=== PATIENT | female | born 1940 | race Native Hawaiian/Other Pacific Islander ===

== ENCOUNTER 2021-11-03 10:19 | Emergency (ER) | payer MEDICARE ==
[2021-11-03 10:47] LABS: Absolute Neutrophil Ct (ANC) 6.63 x10^3/uL (1.4-6.9); Basophil (Absolute #) 0.05 x10^3/uL (0-0.4); Eosinophil % 1.5 % (0.00-5.0); Eosinophil (Absolute #) 0.16 x10^3/uL (0-0.5); Hematocrit 40.3 % (35-47); Hemoglobin 12.7 g/dL (12.0-16.0); Lymphocyte (Absolute #) 2.96 x10^3/uL (1.0-4.6); Lymphocytes % 28.1 % (24.0-44.0); Mean Corpuscular Hemoglobin 27.7 pg (26-32); Mean Corpuscular Hgb Concent. 31.5 g/dL (32-36); Mean Platelet Volume 9.1 fL (7.5-11.0); Monocyte (Absolute #) 0.72 x10^3/uL (0.0-1.3); Monocytes % 6.8 % (0.0-12.0); Neutrophil % 62.8 % (36.0-66.0); Platelet Count 256 x10^3/uL (150-450); Red Blood Count 4.58 x10^6/uL (4.1-5.4); Red Cell Distribution Width 13.3 % (11.5-14.0); White Blood Count 10.6 x10^3/uL (4.0-10.5)
--- NOTE | 2021-11-03 10:47 | ERPHSYRPT ---
- History of Present Illness Source: patient, EMS Exam Limitations: no limitations Patient Subjective Stated Complaint: Syncope Triage Nursing Assessment: Patient brought back to ED per EMS and transferred to bed with assist of 2. Patient A+O x3. Patient's skin pink, warm and dry .Patient states she was done shopping at [facility] when she was going to go to bathroom to have a BM when she came very dizzy and "passed out". Patient complains of occasional dizziness, N/V and diarrhea. Patient complains of pain to back of head 06/25. Hematoma noted to back of head. Physician History: 80 yo wf brought to ER by EMS from [facility] after having syncope episode. Pt started to have diarrhea in [facility] and soiled herself before syncopal episode where she fell and hit head. She also had mild nausea and vomiting x1. Pt denies chest pain/fever/cough/melena/hematochezia/focal weakness/hematemesis/chest pain. She states that she was diaphoretic. Abdominal pain denied. She has a mild occipital CAMARGO and superior cervical pain. Occurred: just prior to arrival Reason for Fall: lost balance, fell from standing pos Injuries/Pain Location: no injury, head, neck Loss of Consciousness: brief (seconds) Quality: aching Severity of Pain-Max: moderate Severity of Pain-Current: moderate Modifying Factors: Improves With: movement Associated Symptoms (Fall): headache, lightheadedness, nausea, neck pain, vomiting, No abdominal pain, No back pain, No confusion, No chest pain, No extremity injury, No muscle spasms, No ringing in ears, No seizures, No shortness of breath, No slurred speech, No trouble walking, No vision changes Allergies/Adverse Reactions: No Known Drug Allergies Allergy (Unverified 11/03/21 10:27) Hx Influenza Vaccination/Date Given: Yes Hx Pneumococcal Vaccination/Date Given: No Immunizations Up to Date: Yes Travel Risk - International Travel Have you traveled outside of the country in past 3 weeks: No - Coronavirus Screening Are you exhibiting any of the following symptoms?: No Close contact with a COVID-19 positive Pt in past 14-21 Days: No - Vaccine Status Have you recieved a Covid-19 vaccination: Yes Route Salesman: Unknown - Vaccination Dates Date of 2cond Vaccination (if applicable): na Dates if Unknown: na - Review of Systems Constitutional: No Symptoms Eyes: No Symptoms Ears, Nose, & Throat: No Symptoms Respiratory: No Symptoms Cardiac: No Symptoms Abdominal/Gastrointestinal: No Symptoms, Nausea, Vomiting, Diarrhea Genitourinary Symptoms: No Symptoms Musculoskeletal: No Symptoms, Neck Pain Skin: No Symptoms Neurological: No Symptoms Psychological: No Symptoms Endocrine: No Symptoms Hematologic/Lymphatic: No Symptoms Immunological/Allergic: No Symptoms - Past Medical History Pertinent Past Medical History: Yes Neurological History: No Pertinent History ENT History: No Pertinent History Cardiac History: High Cholesterol, Hypertension Respiratory History: No Pertinent History Endocrine Medical History: Diabetes Type II Musculoskeletal History: No Pertinent History GI Medical History: GERD History: No Pertinent History Psycho-Social History: No Pertinent History Female Reproductive Disorders: No Pertinent History - Past Surgical History Past Surgical History: Yes Cardiac: No Pertinent History Respiratory: No Pertinent History Gastrointestinal: No Pertinent History Genitourinary: No Pertinent History Musculoskeletal: Orthopedic Surgery Female Surgical History: No Pertinent History Other Surgical History: left hip replacement August 2020 - Social History Smoking Status: Never smoker Exposure to second hand smoke: No Drug Use: none Patient Lives Alone: No Significant Family History: no pertinent family hx - Nursing Vital Signs Nursing Vital Signs: Initial Vital Signs Temperature 97.7 F 11/03/21 10:28 Pulse Rate 92 H 11/03/21 10:28 Respiratory Rate 18 11/03/21 10:28 Blood Pressure 152/102 11/03/21 10:28 O2 Sat by Pulse Oximetry 97 11/03/21 10:28 Pain Scale Pain Intensity 0 Hypertensive - Zoran Coma Score Best Eye Response (Zoran): (4) open spontaneously Best Verbal Response ([place]): (5) oriented Best Motor Response (Zoran): (6) obeys commands Zoran Total: 15 - Physical Exam General Appearance: no apparent distress, anxiety Head Injury: tenderness (Occiput TTP) Eye Exam: PERRL/EOMI, eyes nml inspection ENT Exam: airway nml, No evidence of ENT injury, No clear fluid (ears), No clear fluid (nose) Neck Exam: supple, trachea midline, tenderness (C-spine mildly TTP superiorly) Respiratory/Chest Exam: normal breath sounds, No chest tenderness, No respiratory distress Cardiovascular Exam: normal heart sounds, regular rate/rhythm, normal peripheral pulses, No murmur Gastrointestinal Exam: soft, normal bowel sounds, No tenderness Back Exam: normal inspection, normal range of motion, No CVA tenderness, No vertebral tenderness Extremity Exam: normal inspection, normal range of motion, capillary refill <3 sec, pelvis stable Peripheral Pulses: carotid (R): 2+, carotid (L): 2+ Neurologic Exam: alert, oriented x 3, cooperative, seismograph chief II-XII nml as tested, normal mood/affect, sensation nml Skin Exam: normal color, warm, dry, No rash SpO2 Interpretation: normal SpO2: 97 O2 Delivery: Room Air - Course Nursing assessment & vital signs reviewed: Yes EKG Interpreted by Me: RATE (NSR/R98/Prolonged QTc/Tall R wave V2/Nonspecific ST-Twave changes) - CT Exams Head CT Interpretation: Discussed w/radiologist (Small occipital scalp hematoma, otherwise neg) Cervical Spine CT Interpretation: Discussed w/radiologist (No fx) Chest CT Interpretation: Discussed w/radiologist (CTA of chest/No PE/Scattered indeterminent micronodules/CHANG/gallstone) Ordered Tests: Active Orders 24 hr Category Date Time Status EKG-ER Only STAT Care 11/03/21 10:27 Completed CERVICAL SPINE WO CONTRAST [CT] Stat Exams 11/03/21 10:27 Completed CHEST WITH CONTRAST [CT] Stat Exams 11/03/21 12:42 Completed HEAD WITHOUT CONTRAST [CT] Stat Exams 11/03/21 11:27 Completed CBC W DIFF Stat Lab 11/03/21 10:40 Completed CMP Stat Lab 11/03/21 10:40 Completed CULTURE,URINE Stat Lab 11/03/21 11:04 Received D-DIMER QUANTITATIVE Stat Lab 11/03/21 12:04 Completed PROTIME WITH INR Stat Lab 11/03/21 10:40 Completed PTT Stat Lab 11/03/21 10:40 Completed TROPONIN Q4H Lab 11/03/21 10:40 Completed TROPONIN Q4H Lab 11/03/21 13:47 Completed UA W/RFX CULTURE Stat Lab 11/03/21 11:04 Completed Medication Summary Discontinued Medications Generic Name Dose Route Start Last Admin Trade Name Freq PRN Reason Stop Dose Admin Sodium Chloride 1,000 mls @ 999 mls/hr 11/03/21 12:02 11/03/21 13:34 Sodium Chloride 0.9% 1000 Ml IV 11/03/21 13:02 Infused .Q1H1M STA Infusion Sodium Chloride Confirm 11/03/21 12:04 Sodium Chloride 0.9% 1000 Ml Administered 11/03/21 12:05 Dose 1,000 mls @ .ROUTE .[facility] Lab/Rad Data: Laboratory Result Diagrams 11/03/21 10:40 11/03/21 10:40 Laboratory Results 11/03/21 11/03/21 11/03/21 Range/Units 13:47 12:04 11:11 WBC (4.0-10.5) x10^3/uL RBC (4.1-5.4) x10^6/uL Hgb (12.0-16.0) g/dL Hct (35-47) % MCV (78-100) fL MCH (26-32) pg MCHC (32-36) g/dL RDW (11.5-14.0) % Plt Count (150-450) x10^3/uL MPV (7.5-11.0) fL Gran % (36.0-66.0) % Immature Gran % (Auto) (0.00-0.4) % Nucleat RBC Rel Count (0.00-0.1) % Eos # (Auto) (0-0.5) x10^3/uL Immature Gran # (Auto) (0.00-0.03) x10^3u/L Absolute Lymphs (auto) (1.0-4.6) x10^3/uL Absolute Monos (auto) (0.0-1.3) x10^3/uL Absolute Nucleated RBC (0.00-0.01) x10^3u/L Lymphocytes % (24.0-44.0) % Monocytes % (0.0-12.0) % Eosinophils % (0.00-5.0) % Basophils % (0.0-0.4) % Absolute Granulocytes (1.4-6.9) x10^3/uL Basophils # (0-0.4) x10^3/uL PT (9.4-12.5) SECONDS INR (0.8-3.0) APTT (25.1-36.5) SECONDS D-Dimer 1.72 H* (0.0-0.50) mg/L Sodium (137-145) mmol/L Potassium (3.5-5.1) mmol/L Chloride (98-107) mmol/L Carbon Dioxide (22-30) mmol/L Anion Gap (5-15) MEQ/L BUN (7-17) mg/dL Creatinine (0.52-1.04) mg/dL Estimated GFR ML/MIN Glucose (74-106) mg/dL Calcium (8.4-10.2) mg/dL Total Bilirubin (0.2-1.3) mg/dL AST (14-36) U/L ALT (0-35) U/L Alkaline Phosphatase (38-126) U/L Troponin I < 0.012 (0.000-0.034) ng/mL Serum Total Protein (6.3-8.2) g/dL Albumin (3.5-5.0) g/dL Urinalys Dipstick Clnc Urine Color (YELLOW) Urine Appearance (CLEAR) Urine pH (5-6) Ur Specific [place] (1.005-1.025) POC Urine Protein Conf (Negative) Urine Ketones (NEGATIVE) Urine Nitrite (NEGATIVE) Urine Bilirubin (NEGATIVE) Urine Urobilinogen (0-1) mg/dL Urine Leukocytes (NEGATIVE) Urine WBC (Auto) (0-5) /HPF Urine RBC (Auto) (0-2) /HPF Urine Bacteria (Auto) (NEGATIVE) /HPF Urine RBC (0-5) Abel/ul Urine Mucus (Auto) (NEGATIVE) /HPF Ur Culture Indicated? Urine Glucose (NEGATIVE) mg/dL Influenza Type A Ag NEGATIVE (NEGATIVE) Influenza Type B Ag NEGATIVE (NEGATIVE) RSV (PCR) NEGATIVE (Negative) SARS-CoV-2 (PCR) NEGATIVE (NEGATIVE) 11/03/21 11/03/21 11/03/21 Range/Units 11:04 10:40 10:40 WBC (4.0-10.5) x10^3/uL RBC (4.1-5.4) x10^6/uL Hgb (12.0-16.0) g/dL Hct (35-47) % MCV (78-100) fL MCH (26-32) pg MCHC (32-36) g/dL RDW (11.5-14.0) % Plt Count (150-450) x10^3/uL MPV (7.5-11.0) fL Gran % (36.0-66.0) % Immature Gran % (Auto) (0.00-0.4) % Nucleat RBC Rel Count (0.00-0.1) % Eos # (Auto) (0-0.5) x10^3/uL Immature Gran # (Auto) (0.00-0.03) x10^3u/L Absolute Lymphs (auto) (1.0-4.6) x10^3/uL Absolute Monos (auto) (0.0-1.3) x10^3/uL Absolute Nucleated RBC (0.00-0.01) x10^3u/L Lymphocytes % (24.0-44.0) % Monocytes % (0.0-12.0) % Eosinophils % (0.00-5.0) % Basophils % (0.0-0.4) % Absolute Granulocytes (1.4-6.9) x10^3/uL Basophils # (0-0.4) x10^3/uL PT 10.8 (9.4-12.5) SECONDS INR 1.02 (0.8-3.0) APTT 25.9 (25.1-36.5) SECONDS D-Dimer (0.0-0.50) mg/L Sodium (137-145) mmol/L Potassium (3.5-5.1) mmol/L Chloride (98-107) mmol/L Carbon Dioxide (22-30) mmol/L Anion Gap (5-15) MEQ/L BUN (7-17) mg/dL Creatinine (0.52-1.04) mg/dL Estimated GFR ML/MIN Glucose (74-106) mg/dL Calcium (8.4-10.2) mg/dL Total Bilirubin (0.2-1.3) mg/dL AST (14-36) U/L ALT (0-35) U/L Alkaline Phosphatase (38-126) U/L Troponin I < 0.012 (0.000-0.034) ng/mL Serum Total Protein (6.3-8.2) g/dL Albumin (3.5-5.0) g/dL Urinalys Dipstick Clnc MAIN LAB Urine Color YELLOW (YELLOW) Urine Appearance CLEAR (CLEAR) Urine pH 5.5 (5-6) Ur Specific [place] 1.025 (1.005-1.025) POC Urine Protein Conf 30 (Negative) Urine Ketones SMALL-15 (NEGATIVE) Urine Nitrite NEGATIVE (NEGATIVE) Urine Bilirubin SMALL (NEGATIVE) Urine Urobilinogen 0.2 (0-1) mg/dL Urine Leukocytes NEGATIVE (NEGATIVE) Urine WBC (Auto) 0-2 (0-5) /HPF Urine RBC (Auto) NONE (0-2) /HPF Urine Bacteria (Auto) RARE (NEGATIVE) /HPF Urine RBC NEGATIVE (0-5) Abel/ul Urine Mucus (Auto) SLIGHT (NEGATIVE) /HPF Ur Culture Indicated? YES Urine Glucose NEGATIVE (NEGATIVE) mg/dL Influenza Type A Ag (NEGATIVE) Influenza Type B Ag (NEGATIVE) RSV (PCR) (Negative) SARS-CoV-2 (PCR) (NEGATIVE) 11/03/21 11/03/21 Range/Units 10:40 10:40 WBC 10.6 H (4.0-10.5) x10^3/uL RBC 4.58 (4.1-5.4) x10^6/uL Hgb 12.7 (12.0-16.0) g/dL Hct 40.3 (35-47) % MCV 88.0 (78-100) fL MCH 27.7 (26-32) pg MCHC 31.5 L (32-36) g/dL RDW 13.3 (11.5-14.0) % Plt Count 256 (150-450) x10^3/uL MPV 9.1 (7.5-11.0) fL Gran % 62.8 (36.0-66.0) % Immature Gran % (Auto) 0.3 (0.00-0.4) % Nucleat RBC Rel Count 0.0 (0.00-0.1) % Eos # (Auto) 0.16 (0-0.5) x10^3/uL Immature Gran # (Auto) 0.03 (0.00-0.03) x10^3u/L Absolute Lymphs (auto) 2.96 (1.0-4.6) x10^3/uL Absolute Monos (auto) 0.72 (0.0-1.3) x10^3/uL Absolute Nucleated RBC 0.00 (0.00-0.01) x10^3u/L Lymphocytes % 28.1 (24.0-44.0) % Monocytes % 6.8 (0.0-12.0) % Eosinophils % 1.5 (0.00-5.0) % Basophils % 0.5 (0.0-0.4) % Absolute Granulocytes 6.63 (1.4-6.9) x10^3/uL Basophils # 0.05 (0-0.4) x10^3/uL PT (9.4-12.5) SECONDS INR (0.8-3.0) APTT (25.1-36.5) SECONDS D-Dimer (0.0-0.50) mg/L Sodium 138 (137-145) mmol/L Potassium 3.8 (3.5-5.1) mmol/L Chloride 100 (98-107) mmol/L Carbon Dioxide 25 (22-30) mmol/L Anion Gap 17.9 H (5-15) MEQ/L BUN 15 (7-17) mg/dL Creatinine 0.94 (0.52-1.04) mg/dL Estimated GFR > 60.0 ML/MIN Glucose 181 H (74-106) mg/dL Calcium 9.3 (8.4-10.2) mg/dL Total Bilirubin 0.40 (0.2-1.3) mg/dL AST 41 H (14-36) U/L ALT 35 (0-35) U/L Alkaline Phosphatase 87 (38-126) U/L Troponin I (0.000-0.034) ng/mL Serum Total Protein 7.4 (6.3-8.2) g/dL Albumin 4.3 (3.5-5.0) g/dL Urinalys Dipstick Clnc Urine Color (YELLOW) Urine Appearance (CLEAR) Urine pH (5-6) Ur Specific [place] (1.005-1.025) POC Urine Protein Conf (Negative) Urine Ketones (NEGATIVE) Urine Nitrite (NEGATIVE) Urine Bilirubin (NEGATIVE) Urine Urobilinogen (0-1) mg/dL Urine Leukocytes (NEGATIVE) Urine WBC (Auto) (0-5) /HPF Urine RBC (Auto) (0-2) /HPF Urine Bacteria (Auto) (NEGATIVE) /HPF Urine RBC (0-5) Abel/ul Urine Mucus (Auto) (NEGATIVE) /HPF Ur Culture Indicated? Urine Glucose (NEGATIVE) mg/dL Influenza Type A Ag (NEGATIVE) Influenza Type B Ag (NEGATIVE) RSV (PCR) (Negative) SARS-CoV-2 (PCR) (NEGATIVE) - Progress Progress: improved Progress Note: 11/03/21 15:06 Pt wo focal weakness/ectopy/chest pain during entire stay. Vital Signs stable 11/03/21 21:14 Pt able to ambulate wo difficulty before discharge Counseled pt/family regarding: lab results, diagnosis, need for follow-up, rad results - Departure Departure Disposition: Home Clinical Impression: Diarrhea, Minor head injury Condition: Stable Critical Care Time: No Referrals: DOCTOR,NO FAMILY [Primary Care Provider] - Follow up/PCP as directed Instructions: Diarrhea and Travelers' Diarrhea, Adult (DC), Syncope (Fainting) (DC), Preventing Falls in Older Adults, Minor Head Injury (DC) Additional Instructions: Fluids Motrin/Tylenol for pain Ice to contused areas for 12-24 hours Follow up with your family MD on Saturday Return to ER for worsening headache/Focal weakness/Trouble walking
[2021-11-03 11:00] LABS: ALBUMIN 4.3 g/dL (3.5-5.0); ALKALINE PHOSPHATASE 87 U/L (38-126); ANION GAP 17.9 MEQ/L (5-15); BLOOD UREA NITROGEN 15 mg/dL (7-17); CHLORIDE 100 mmol/L (98-107); Calcium 9.3 mg/dL (8.4-10.2); Carbon Dioxide 25 mmol/L (22-30); Creatinine 1 0.94 mg/dL (0.52-1.04); EST GLOMERULAR FILTRATION RATE > 60.0 ML/MIN; Glucose 181 mg/dL (74-106); Potassium 3.8 mmol/L (3.5-5.1); SGOT/AST 41 U/L (14-36); SGPT/ALT 35 U/L (0-35); SODIUM 138 mmol/L (137-145); Total Protein 7.4 g/dL (6.3-8.2)
[2021-11-03 11:01] LABS: INR 1.02 (0.8-3.0); PROTIME 10.8 SECONDS (9.4-12.5); PTT 25.9 SECONDS (25.1-36.5)
[2021-11-03 11:36] LABS: Bacteria RARE /HPF (NEGATIVE); Mucus SLIGHT /HPF (NEGATIVE); WBC 0-2 /HPF (0-5)
--- NOTE | 2021-11-03 11:36 | XRAY ---
Indication: Right posterior head injury following fall. Multiple contiguous axial images obtained through the head without contrast. Comparison: None Age-appropriate global atrophy and mild periventricular degenerative micro-ischemia bilaterally. No acute intracranial hemorrhage, abnormal extra-axial fluid collection, or mass effect. Fourth ventricle is midline without hydrocephalus. Small right occipital scalp hematoma. Bony calvarium intact. Visualized paranasal sinuses and mastoid air cells are clear. Impression: Small right occipital scalp hematoma. Otherwise nonacute senile brain.
[2021-11-03 11:38] LABS: Appearance CLEAR (CLEAR); Bilirubin SMALL (NEGATIVE); Glucose NEGATIVE (NEGATIVE)
--- NOTE | 2021-11-03 11:38 | XRAY ---
Indication: Right posterior head injury following fall. Multiple contiguous axial images obtained through the cervical spine. Sagittal and coronal reformatted images obtained. Comparison: None Age-related osteopenia. Axial images negative for acute fracture, suspicious bony lesions, or spinal canal stenosis. Mild/moderate C3-C7 degenerative endplate spurring and mild/moderate multilevel bilateral degenerative facet hypertrophy. Also atlantoaxial degenerative arthropathy. Sagittal and coronal reformatted images demonstrates normal cervical lordosis with C3-C7 degenerative disc space loss and 3 mm C7 degenerative anterolisthesis. No acute compression fracture or jumped facet. Normal-appearing craniocervical junction. Visualized noncontrasted soft tissues demonstrates moderate bilateral carotid calcifications. Lung apices are clear. Impression: 1. Negative acute fracture. 2. Osteopenia, multilevel degenerative spondylosis including grade 1 C7 listhesis, and bilateral carotid calcifications.
[2021-11-03 11:39] LABS: Ketones SMALL-15 (NEGATIVE); Nitrite NEGATIVE (NEGATIVE); Ph 5.5 (5-6); Protein,Urine Dip 30 (Negative); RBC NEGATIVE Ery/ul (0-5); Specific Gravity 1.025 (1.005-1.025); Urine Cultured Indicated? YES; Urobilinogen 0.2 mg/dL (0-1)
[2021-11-03 11:48] LABS: Dipstick done @ ? MAIN LAB
[2021-11-03] MEDS ORDERED: Sodium Chloride 0.9% 1000 ML 1,000 ML IV STA (12:02)
[2021-11-03] MEDS ORDERED: Sodium Chloride 0.9% 1000 ML 1,000 ML ONE (12:04)
[2021-11-03 12:32] LABS: INFLUENZA A NEGATIVE (NEGATIVE); INFLUENZA B NEGATIVE (NEGATIVE); RESPIRATORY SYNCTIAL VIRUS NEGATIVE (Negative); SARS-CoV-2 Xpert Express NEGATIVE (NEGATIVE)
--- NOTE | 2021-11-03 13:21 | XRAY ---
Indication: Syncope. Elevated d-dimer. Multiple contiguous axial images obtained through the chest using 100 cc Isovue 370 contrast and PE protocol. Comparison: None Good opacification of the pulmonary arteries to include the lobar and segmental branches. No pulmonary embolus. Heart is not enlarged. Aorta is moderately arteriosclerotic without aneurysm/dissection. Tiny bilateral hilar and distal paraesophageal calcified nodes. No pathologic mediastinal/hilar lymphadenopathy. Lungs hyperinflated with minimal bilateral dependent atelectasis and tiny right upper/lower lobe calcified granulomas. There are at least 5 right and 3 left lung peripheral noncalcified indeterminant micronodules, largest 7 mm in right middle lobe. No infiltrate, effusion, or pneumothorax. Bony thorax intact with osteopenia and mild degenerative changes throughout the visualized spine. Limited upper abdomen demonstrates food/fluid distended stomach, fatty liver, 1 cm gallstone, and 1.5 cm right upper renal cyst. Impression: 1. Negative pulmonary embolus. No acute cardiopulmonary abnormalities. 2. Multiple bilateral indeterminate noncalcified micronodules. Findings too small for PET/CT. Consider follow-up or Fleischner guidelines. 3. Chronic findings including arteriosclerotic disease, chronic bony findings, fatty liver, small gallstone, small right renal cyst, and old granulomatous disease.
[2021-11-03 15:03] VITALS: BP 165/76; PULSE 80
[2021-11-03 15:11] VITALS: O2SAT 97
== END 2021-11-03 15:19 | disposition home or self-care (01) ==
LOC: ED 10:19
DX: R19.7 Diarrhea, unspecified (principal); S09.90XA Unspecified injury of head, initial encounter; W18.30XA Fall on same level, unspecified, initial encounter; Y92.512 Supermarket, store or market as the place of occurrence of the external cause; R55 Syncope and collapse; R11.2 Nausea with vomiting, unspecified; R51.9 Headache, unspecified; M54.2 Cervicalgia; E78.5 Hyperlipidemia, unspecified; I10 Essential (primary) hypertension; E11.9 Type 2 diabetes mellitus without complications; Z20.828 Contact with and (suspected) exposure to other viral communicable diseases
CPT/HCPCS: 0241U; 36415; 70450; 71260; 72125; 80053; 81015; 84484; 85025; 85379; 85610; 85730; 87086; 93005; 99284